=== PATIENT | male | born 1985 | race American Indian/Alaskan Native ===

== ENCOUNTER 2017-10-19 13:12 | Emergency (ER) | payer SELFPAY ==
[2017-10-19 13:44] VITALS: BP 124/77
== END 2017-10-19 16:34 ==
LOC: ED 13:12
DX: M79.641 Pain in right hand (principal); Z53.21 Procedure and treatment not carried out due to patient leaving prior to being seen by health care provider

== ENCOUNTER 2017-10-20 09:36 | Emergency (ER) | payer OTHER ==
[2017-10-20 10:21] VITALS: BP 134/75
--- NOTE | 2017-10-20 11:32 | Emergency Department Report ---
"ED Extremity Problem HPI - General Chief complaint: Extremity Injury, Upper Stated complaint: LUMP ON RIGHT WRIST Time Seen by Provider: 10/20/17 11:27 Source: patient Mode of arrival: Ambulatory Limitations: No Limitations - History of Present Illness Initial comments: 32-year-old male past medical history ganglion cyst right wrist presents with complaint of acute on chronic pain on dorsal aspect of the right wrist. Patient states that he has had this since he was 7 years old. Patient denies any direct trauma but does state that while at work he was lifting a box and may have strained his right wrist. Denies any direct trauma otherwise. Denies any paresthesias. States that flexion of his right middle finger is somewhat painful secondary to inflamed cyst. MD Complaint: extremity pain, extremity swelling Onset/Timin -: year(s) Location: right, upper extremity (dosal right wrist) History of Same: Yes Severity scale (0 -10): 6 Quality: aching Consistency: intermittent Worsens with: palpation Associated Symptoms: denies other symptoms - Related Data Previous Rx's Medication Instructions Recorded Last Taken Type Hydrocodone Bit/Acetaminophen 1 each PO Q4-6H PRN #10 tablet 04/13/13 Unknown Rx [Lortab 5-500 Tablet] Mupirocin [Bactroban 2% Oint] 1 applic TP TID #22 gram 04/13/13 Unknown Rx Sulfamethoxazole/Trimethoprim 1 each PO BID #20 tablet 04/13/13 Unknown Rx [Bactrim DS] HYDROcodone/APAP 5-325 [[place] 1 each PO Q6HR PRN #14 tablet 03/19/15 Unknown Rx 5/325] Ibuprofen [Motrin] 600 mg PO Q8H PRN #60 tablet 03/19/15 Unknown Rx Sulfamethoxazole/Trimethoprim 1 each PO BID #20 tablet 03/19/15 Unknown Rx [Bactrim DS TAB] Naproxen [Naprosyn TAB] 375 mg PO BID PRN #20 tablet 10/20/17 Unknown Rx Allergies Allergy/AdvReac Type Severity Reaction Status Date / Time No Known Allergies Allergy Unverified 03/28/13 08:40 ED Review of Systems ROS: Stated complaint: LUMP ON RIGHT WRIST Other details as noted in HPI Constitutional: denies: chills, fever Eyes: denies: eye pain, eye discharge, vision change ENT: denies: ear pain, throat pain Respiratory: denies: cough, shortness of breath, wheezing Cardiovascular: denies: chest pain, palpitations Endocrine: no symptoms reported Gastrointestinal: denies: abdominal pain, nausea, diarrhea Genitourinary: denies: urgency, dysuria Musculoskeletal: as per HPI. denies: back pain, joint swelling, arthralgia Skin: denies: rash, lesions Neurological: denies: headache, weakness, paresthesias Psychiatric: denies: anxiety, depression Hematological/Lymphatic: denies: easy bleeding, easy bruising ED Past Medical Hx - Past Medical History Previous Medical History?: Yes Additional medical history: right hand pain/lump - Surgical History Past Surgical History?: Yes Additional Surgical History: tonsillectomy, Left knee surgery - Social History Smoking Status: Never Smoker Substance Use Type: Alcohol - Medications Home Medications: Home Medications Medication Instructions Recorded Confirmed Last Taken Type Hydrocodone Bit/Acetaminophen 1 each PO Q4-6H PRN #10 tablet 04/13/13 Unknown Rx [Lortab 5-500 Tablet] Mupirocin [Bactroban 2% Oint] 1 applic TP TID #22 gram 04/13/13 Unknown Rx Sulfamethoxazole/Trimethoprim 1 each PO BID #20 tablet 04/13/13 Unknown Rx [Bactrim DS] HYDROcodone/APAP 5-325 [[place] 1 each PO Q6HR PRN #14 tablet 03/19/15 Unknown Rx 5/325] Ibuprofen [Motrin] 600 mg PO Q8H PRN #60 tablet 03/19/15 Unknown Rx Sulfamethoxazole/Trimethoprim 1 each PO BID #20 tablet 03/19/15 Unknown Rx [Bactrim DS TAB] Naproxen [Naprosyn TAB] 375 mg PO BID PRN #20 tablet 10/20/17 Unknown Rx ED Physical Exam - General Limitations: No Limitations General appearance: alert, in no apparent distress - Head Head exam: Present: atraumatic, normocephalic - Eye Eye exam: Present: normal appearance, PERRL, EOMI - ENT ENT exam: Present: mucous membranes moist - Neck Neck exam: Present: normal inspection - Respiratory Respiratory exam: Present: normal lung sounds bilaterally. Absent: respiratory distress - Cardiovascular Cardiovascular Exam: Present: regular rate, normal rhythm. Absent: systolic murmur, diastolic murmur, rubs, gallop - GI/Abdominal GI/Abdominal exam: Present: soft, normal bowel sounds - Rectal Rectal exam: Present: deferred - Extremities Exam Extremities exam: Present: normal inspection - Expanded Upper Extremity Exam Right Forearm Wrist exam: Present: normal inspection, tenderness (palpable ganglion cyst approximately 2-3 cm in diameter dorsal aspect of right hand/wrist. No surrounding erythema or fluctuance or visible cellulitis. Texture is rubbery to palpation. Painful to palpation), swelling Hand Wrist exam: Present: swelling, other (ganglion cyst) Hand L/R Back: 1 - Ganglion cyst. Neuro motor exam: Present: wrist extension intact, thumb opposition intact, thumb IP flexion intact, thumb adduction intact, fingers 2-5 abduction intact Neurosensory exam: Present: radial nerve intact, ulnar nerve intact, median nerve intact Vascular: Present: normal capillary refill, radial pulse, brachial pulse, ulnar pulse - Back Exam Back exam: Present: normal inspection - Neurological Exam Neurological exam: Present: alert, oriented X3, CN II-XII intact, normal gait - Psychiatric Psychiatric exam: Present: normal affect, normal mood - Skin Skin exam: Present: warm, dry, intact, normal color. Absent: rash ED Course Vital Signs 10/20/17 10/20/17 10:19 11:47 Temperature 98.2 F Pulse Rate 60 Respiratory 16 18 Rate Blood Pressure 134/75 O2 Sat by Pulse 99 Oximetry ED Medical Decision Making - Medical Decision Making A/P: Ganglion cyst dorsal aspect right hand/wrist 1-right wrist splint 2-naproxen when necessary 3-advised patient to follow up with orthopedics and provided him information for orthopedics follow-up 4-no clinical signs of infection. Range of motion right wrist+hand+fingers intact Critical care attestation.: If time is entered above; I have spent that time in minutes in the direct care of this critically ill patient, excluding procedure time. ED Disposition Clinical Impression: Ganglion cyst of tendon sheath of right hand Disposition: DC-01 TO HOME OR SELFCARE Is pt being admited?: No Does the pt Need Aspirin: No Condition: Stable Instructions: Naproxen (By mouth) Additional Instructions: https://orthoinfo.aaos.org/en/diseases--conditions/bkfwyoao-dokc-mg-the-wrist- and-hand/ http://www.[facility]ah[facility].org/#locations [facility], [place], [place] Phone (appointments): [phone] | Phone (general inquiries): Address: [address] [place] [address], [address] [address] [facility], [place], [place] Phone (appointments): [phone] | Phone (general inquiries): [phone] Address: [address] [place] [id number] Prescriptions: Naproxen [Naprosyn TAB] 375 mg PO BID PRN #20 tablet PRN Reason: Pain Referrals: PRIMARY CARE, [Primary Care Provider] - 3-5 Days MYRANDA MENDOZA MD [Staff Physician] - 3-5 Days [facility] [Provider Group] - 3-5 Days Forms: Work/School Release Form(ED) Time of Disposition: 12:03"
[2017-10-20] MEDS ORDERED: TORADOL IM ONE (11:42)
--- NOTE | 2017-10-20 12:16 | XRay Report ---
RIGHT HAND, 3 views: History: Painful mass on the back of right hand. The bony architecture is intact. Bony alignment is normal. No soft tissue abnormalities are seen. The joint spaces appear preserved. IMPRESSION: Normal right hand. No soft tissue mass is visualized on x-ray.
== END 2017-10-20 12:18 | disposition home or self-care (01) ==
LOC: ED 09:36
DX: M67.441 Ganglion, right hand (principal)
CPT/HCPCS: 29125; 73130; 96372; 99283; J1885

== ENCOUNTER 2018-02-22 12:53 | Emergency (ER) | payer SELFPAY ==
[2018-02-22 13:04] VITALS: BP 122/69
[2018-02-22 14:41] LABS: Bilirubin,Urine NEG (Negative); Blood,Urine NEG (Negative); Color,Urine Yellow (Yellow); Protein,Urine <15 mg/dL mg/dL (Negative); Urobilinogen,Urine < 2.0 mg/dL (<2.0)
--- NOTE | 2018-02-22 15:43 | Emergency Department Report ---
Blank Doc - Documentation Documentation: 32 yo male with no known past medical history presents to the hospital with complaints of generalized fatigue and generalized weakness for 2-3 months acutely worsening this morning. Patient states he feels diffusely drained and tired. Urinary frequency reported. Decreased appetite. No nausea, vomiting, diarrhea, or pain reported. Initial Accu-Chek 93 UA negative Labs ordered Mid-level to follow
[2018-02-22 16:01] LABS: Basophils # (Auto) 0.1 K/mm3 (0.0-0.1); Basophils % (Auto) 1.1 % (0.0-1.8); Eosinophils # (Auto) 0.1 K/mm3 (0.0-0.4); Eosinophils % (Auto) 2.2 % (0.0-4.3); Hematocrit 47.2 % (35.5-45.6); Hemoglobin 15.8 gm/dl (11.8-15.2); Lymphocytes # (Auto) 1.5 K/mm3 (1.2-5.4); Lymphocytes % (Auto) 26.9 % (13.4-35.0); Mean Corpuscular HGB Conc 34 % (32-34); Mean Corpuscular Hemoglobin 32 pg (28-32); Mean Corpuscular Volume 95 fl (84-94); Monocytes # (Auto) 0.7 K/mm3 (0.0-0.8); Monocytes % (Auto) 12.8 % (0.0-7.3); Platelet Count 186 K/mm3 (140-440); Red Blood Count 4.96 M/mm3 (3.65-5.03)
[2018-02-22 16:29] LABS: BUN/Creatinine Ratio 13; Blood Urea Nitrogen 15 mg/dL (9-20); Calcium 9.2 mg/dL (8.4-10.2); Hemolysis Index 8
[2018-02-22 16:41] LABS: Free T4 (Free Thyroxine) 1.2 ng/dL (0.76-1.46)
--- NOTE | 2018-02-22 17:09 | Emergency Department Report ---
- General Chief complaint: Weakness Stated complaint: FEELING WEAK Time Seen by Provider: 02/22/18 15:35 Source: patient Mode of arrival: Ambulatory Limitations: No Limitations - History of Present Illness Initial comments: This is a 32 y.o. male that presents to the emergency room with complaint of weakness, dizziness, and fatigue for 2-3 days. Patient states he cut grass on Tuesday and didn't seek care for since. He thought it was just a common cold currently taken Krystyna-Dalton and Goody's for symptom relief with no improvement. Patient states he is also feeling nauseous without vomiting. He also complains of congestion and increased rhinorrhea. Patient denies past medical history. He denies diarrhea, vomiting, abdominal pain, frequency, urgency, dysuria, fever, shortness of breath, and chest pain. MD Complaint: lack of energy Onset/Timin -: days(s) Severity: mild Severity scale (0 -10): 3 Consistency: intermittent Improves with: none Worsens with: evening, exertion Associated Symptoms: nausea/vomiting. denies: chest pain, confusion, dark stools, diaphoresis, dysuria, easy bruising, fever/chills, headaches, loss of appetite, rash, shortness of breath, syncope - Related Data Previous Rx's Medication Instructions Recorded Last Taken Type Hydrocodone Bit/Acetaminophen 1 each PO Q4-6H PRN #10 tablet 04/13/13 Unknown Rx [Lortab 5-500 Tablet] Mupirocin [Bactroban 2% Oint] 1 applic TP TID #22 gram 04/13/13 Unknown Rx Sulfamethoxazole/Trimethoprim 1 each PO BID #20 tablet 04/13/13 Unknown Rx [Bactrim DS] HYDROcodone/APAP 5-325 [[place] 1 each PO Q6HR PRN #14 tablet 03/19/15 Unknown Rx 5/325] Ibuprofen [Motrin] 600 mg PO Q8H PRN #60 tablet 03/19/15 Unknown Rx Sulfamethoxazole/Trimethoprim 1 each PO BID #20 tablet 03/19/15 Unknown Rx [Bactrim DS TAB] Naproxen [Naprosyn TAB] 375 mg PO BID PRN #20 tablet 10/20/17 Unknown Rx Cetirizine HCl [Zyrtec] 10 mg PO DAILY #30 tablet 02/22/18 Unknown Rx Fluticasone [Flonase] 1 spray NS QDAY #1 bottle 02/22/18 Unknown Rx Guaifenesin/Dm/Pseudoephedrine 1 each PO BID #10 tablet 02/22/18 Unknown Rx [Capmist Dm Tablet] Allergies Allergy/AdvReac Type Severity Reaction Status Date / Time No Known Allergies Allergy Unverified 03/28/13 08:40 ED Review of Systems ROS: Stated complaint: FEELING WEAK Other details as noted in HPI Constitutional: other (fatigue). denies: chills, fever, malaise ENT: congestion. denies: ear pain, throat pain Respiratory: denies: cough, shortness of breath, wheezing Cardiovascular: denies: chest pain, palpitations Gastrointestinal: nausea. denies: abdominal pain, diarrhea Genitourinary: frequency. denies: urgency, dysuria, hematuria, discharge, testicular pain, testicular mass Neurological: vertigo. denies: headache, paresthesias Psychiatric: denies: anxiety, depression ED Past Medical Hx - Past Medical History Previous Medical History?: No Additional medical history: right hand pain/lump - Surgical History Past Surgical History?: Yes Additional Surgical History: tonsillectomy, Left knee surgery - Social History Smoking Status: Never Smoker Substance Use Type: None - Medications Home Medications: Home Medications Medication Instructions Recorded Confirmed Last Taken Type Hydrocodone Bit/Acetaminophen 1 each PO Q4-6H PRN #10 tablet 04/13/13 Unknown Rx [Lortab 5-500 Tablet] Mupirocin [Bactroban 2% Oint] 1 applic TP TID #22 gram 04/13/13 Unknown Rx Sulfamethoxazole/Trimethoprim 1 each PO BID #20 tablet 04/13/13 Unknown Rx [Bactrim DS] HYDROcodone/APAP 5-325 [[place] 1 each PO Q6HR PRN #14 tablet 03/19/15 Unknown Rx 5/325] Ibuprofen [Motrin] 600 mg PO Q8H PRN #60 tablet 03/19/15 Unknown Rx Sulfamethoxazole/Trimethoprim 1 each PO BID #20 tablet 03/19/15 Unknown Rx [Bactrim DS TAB] Naproxen [Naprosyn TAB] 375 mg PO BID PRN #20 tablet 10/20/17 Unknown Rx Cetirizine HCl [Zyrtec] 10 mg PO DAILY #30 tablet 02/22/18 Unknown Rx Fluticasone [Flonase] 1 spray NS QDAY #1 bottle 02/22/18 Unknown Rx Guaifenesin/Dm/Pseudoephedrine 1 each PO BID #10 tablet 02/22/18 Unknown Rx [Capmist Dm Tablet] ED Physical Exam - General Limitations: No Limitations General appearance: alert, in no apparent distress - ENT ENT exam: Present: mucous membranes moist, normal external ear exam (turbinates mildly congested with clear discharge) - Neck Neck exam: Present: normal inspection - Respiratory Respiratory exam: Present: normal lung sounds bilaterally. Absent: respiratory distress - Cardiovascular Cardiovascular Exam: Present: regular rate, normal rhythm. Absent: systolic murmur, diastolic murmur, rubs, gallop - GI/Abdominal GI/Abdominal exam: Present: soft, normal bowel sounds. Absent: organomegaly, mass - Back Exam Back exam: Absent: CVA tenderness (R), CVA tenderness (L) - Neurological Exam Neurological exam: Present: alert, oriented X3 - Psychiatric Psychiatric exam: Present: normal affect, normal mood - Skin Skin exam: Present: warm, dry, intact, normal color. Absent: rash ED Course Vital Signs 02/22/18 13:00 Temperature 98.2 F Pulse Rate 60 Respiratory 18 Rate Blood Pressure 122/69 O2 Sat by Pulse 99 Oximetry ED Medical Decision Making - Lab Data Result diagrams: 02/22/18 15:52 02/22/18 15:52 - Medical Decision Making Patient was examined by me and Dr. Heller in fast track. Vitals are normal and patient is in no acute distress. Obtained labs and all are remarkable. Patient informed of results. Physical funds susceptible of upper respiratory infection. Start Flonase, ceterizine, and mucinex DM. Plan discussed with patient to discharge home and treat outpatient. He agrees with ER plan. Patient discharged home in stable condition. Follow up with PCP in 2-3 days for further evaluation. Return to work tomorrow. Critical care attestation.: If time is entered above; I have spent that time in minutes in the direct care of this critically ill patient, excluding procedure time. ED Disposition Clinical Impression: Other malaise Upper respiratory infection Qualifiers: URI type: acute nasopharyngitis (common cold) Qualified Code(s): J00 - Acute nasopharyngitis [common cold] Disposition: TO HOME OR SELFCARE Is pt being admited?: No Does the pt Need Aspirin: No Condition: Stable Instructions: Upper Respiratory Infection (ED), Cold Symptoms (ED) Additional Instructions: Increase fluid intake and rest. Wash hands frequently. Continue taking tylenol or ibuprofen to control fever. F/U with Primary Care Provider. Return to ER if fever, SOB, or difficulty breathing after 48 hours of supportive care. Prescriptions: Cetirizine HCl [Zyrtec] 10 mg PO DAILY #30 tablet Fluticasone [Flonase] 1 spray NS QDAY #1 bottle Guaifenesin/Dm/Pseudoephedrine [Capmist Dm Tablet] 1 each PO BID #10 tablet Referrals: [facility] [Outside] - 3-5 Days [facility] [Outside] - 3-5 Days [facility] [Outside] - 3-5 Days Forms: Work/School Release Form(ED) Time of Disposition: 17:22 Print Language: ROMANSH
== END 2018-02-22 17:33 | disposition home or self-care (01) ==
LOC: ED 12:53
DX: R53.81 Other malaise (principal); J00 Acute nasopharyngitis [common cold]; Z90.89 Acquired absence of other organs
CPT/HCPCS: 36415; 80048; 81001; 82962; 83735; 84439; 84443; 85025; 99283

== ENCOUNTER 2018-03-13 13:55 | Emergency (ER) | payer SELFPAY ==
[2018-03-13 14:42] VITALS: BP 117/86
[2018-03-13] MEDS ORDERED: MOTRIN PO ONE (14:44)
[2018-03-13] MEDS ORDERED: MOTRIN ONE (14:47)
== END 2018-03-13 18:00 | disposition left against medical advice (07) ==
LOC: ED 13:55
DX: Z04.1 Encounter for examination and observation following transport accident (principal)

== ENCOUNTER 2018-03-14 06:28 | Emergency (ER) | payer OTHER ==
[2018-03-14] MEDS ORDERED: MOTRIN PO ONE (07:25)
[2018-03-14] MEDS ORDERED: MOTRIN ONE (07:27)
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
[2018-03-14 12:57] VITALS: BP 115/70
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
== END 2018-03-14 12:54 | disposition home or self-care (01) ==
LOC: ED 06:28
DX: S39.012A Strain of muscle, fascia and tendon of lower back, initial encounter (principal); S16.1XXA Strain of muscle, fascia and tendon at neck level, initial encounter; M79.1 Myalgia; Z90.89 Acquired absence of other organs; V49.49XA Driver injured in collision with other motor vehicles in traffic accident, initial encounter; Y93.89 Activity, other specified; Y92.89 Other specified places as the place of occurrence of the external cause; Y99.8 Other external cause status
CPT/HCPCS: 72040; 72070; 72100

== ENCOUNTER 2018-07-31 13:10 | Emergency (ER) | payer OTHER ==
[2018-07-31 13:18] VITALS: BP 112/61
[2018-07-31] MEDS ORDERED: IBUPROFEN PO ONE (14:15)
--- NOTE | 2018-07-31 14:46 | XRay Report ---
RIGHT ANKLE RADIOGRAPHS INDICATION: Right ankle pain. COMPARISON: None similar. FINDINGS: AP, lateral and oblique right ankle radiographs demonstrate intact mortise, malleoli and talar dome contour. Mild tibial plafond degenerative spurring noted anteriorly and posteriorly on the lateral view. Couple of small soft tissue calcifications anteriorly measuring up to 5 mm also noted above the talar neck on the lateral view. CONCLUSION: No acute right ankle radiographic abnormality with mild degenerative changes possible, not excluded old post traumatic in a patient of this age. Please correlate. Thank you for the opportunity to participate in this patient's care.
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
== END 2018-07-31 15:30 | disposition home or self-care (01) ==
LOC: ED 13:10
DX: S93.401A Sprain of unspecified ligament of right ankle, initial encounter (principal); W18.30XA Fall on same level, unspecified, initial encounter; Y93.89 Activity, other specified; Y92.89 Other specified places as the place of occurrence of the external cause; Y99.8 Other external cause status

== ENCOUNTER 2018-09-28 13:50 | Emergency (ER) | payer SELFPAY ==
[2018-09-28 14:14] VITALS: BP 105/65
--- NOTE | 2018-09-28 15:43 | XRay Report ---
RIGHT ANKLE, 2 views: History: Injury. Compared to 07/31/18. Bone mineralization is normal. No acute osseous abnormality or joint pathology is identified. The soft tissues are unremarkable. IMPRESSION: Unremarkable right foot films.
--- NOTE | 2018-09-28 16:22 | Emergency Department Report ---
ED Extremity Problem HPI - General Chief complaint: Extremity Injury, Lower Stated complaint: RT ANKLE INJURY/PAIN Time Seen by Provider: 09/28/18 15:58 Source: patient Mode of arrival: Ambulatory Limitations: No Limitations - History of Present Illness Initial comments: Patient is a 33-year-old black male who states that for the past month he's had pain in his right foot. Patient states it is worse on the medial foot and his arch. This is worse in the mornings when he tries to take first step. He cannot remember any direct injury or trauma. No swelling fevers chills nausea vomiting. Patient states pain is 10 out of 10 in severity at its worst. Severity scale (0 -10): 10 - Related Data Previous Rx's Medication Instructions Recorded Last Taken Type Hydrocodone Bit/Acetaminophen 1 each PO Q4-6H PRN #10 tablet 04/13/13 Unknown Rx [Lortab 5-500 Tablet] Mupirocin [Bactroban 2% Oint] 1 applic TP TID #22 gram 04/13/13 Unknown Rx Sulfamethoxazole/Trimethoprim 1 each PO BID #20 tablet 04/13/13 Unknown Rx [Bactrim DS] HYDROcodone/APAP 5-325 [[place] 1 each PO Q6HR PRN #14 tablet 03/19/15 Unknown Rx 5/325] Ibuprofen [Motrin] 600 mg PO Q8H PRN #60 tablet 03/19/15 Unknown Rx Sulfamethoxazole/Trimethoprim 1 each PO BID #20 tablet 03/19/15 Unknown Rx [Bactrim DS TAB] Naproxen [Naprosyn TAB] 375 mg PO BID PRN #20 tablet 10/20/17 Unknown Rx Cetirizine HCl [Zyrtec] 10 mg PO DAILY #30 tablet 02/22/18 Unknown Rx Fluticasone [Flonase] 1 spray NS QDAY #1 bottle 02/22/18 Unknown Rx Guaifenesin/Dm/Pseudoephedrine 1 each PO BID #10 tablet 02/22/18 Unknown Rx [Capmist Dm Tablet] Cyclobenzaprine [Flexeril 10mg] 10 mg PO Q12H PRN #14 tablet 03/14/18 Unknown Rx Ibuprofen [Motrin] 600 mg PO Q8H PRN #12 tablet 03/14/18 Unknown Rx Ibuprofen [Motrin] 600 mg PO Q8H PRN #20 tablet 07/31/18 Unknown Rx Ibuprofen [Ibu] 800 mg PO Q8H PRN #20 tablet 09/28/18 Unknown Rx traMADol [Ultram] 50 mg PO Q6HR PRN #12 tablet 09/28/18 Unknown Rx Allergies Allergy/AdvReac Type Severity Reaction Status Date / Time No Known Allergies Allergy Unverified 03/28/13 08:40 ED Review of Systems ROS: Stated complaint: RT ANKLE INJURY/PAIN Other details as noted in HPI Comment: All other systems reviewed and negative ED Past Medical Hx - Past Medical History Previous Medical History?: No Additional medical history: right hand pain/lump - Surgical History Past Surgical History?: Yes Additional Surgical History: tonsillectomy, Left knee surgery - Social History Smoking Status: Never Smoker Substance Use Type: Alcohol - Medications Home Medications: Home Medications Medication Instructions Recorded Confirmed Last Taken Type Hydrocodone Bit/Acetaminophen 1 each PO Q4-6H PRN #10 tablet 04/13/13 Unknown Rx [Lortab 5-500 Tablet] Mupirocin [Bactroban 2% Oint] 1 applic TP TID #22 gram 04/13/13 Unknown Rx Sulfamethoxazole/Trimethoprim 1 each PO BID #20 tablet 04/13/13 Unknown Rx [Bactrim DS] HYDROcodone/APAP 5-325 [[place] 1 each PO Q6HR PRN #14 tablet 03/19/15 Unknown Rx 5/325] Ibuprofen [Motrin] 600 mg PO Q8H PRN #60 tablet 03/19/15 Unknown Rx Sulfamethoxazole/Trimethoprim 1 each PO BID #20 tablet 03/19/15 Unknown Rx [Bactrim DS TAB] Naproxen [Naprosyn TAB] 375 mg PO BID PRN #20 tablet 10/20/17 Unknown Rx Cetirizine HCl [Zyrtec] 10 mg PO DAILY #30 tablet 02/22/18 Unknown Rx Fluticasone [Flonase] 1 spray NS QDAY #1 bottle 02/22/18 Unknown Rx Guaifenesin/Dm/Pseudoephedrine 1 each PO BID #10 tablet 02/22/18 Unknown Rx [Capmist Dm Tablet] Cyclobenzaprine [Flexeril 10mg] 10 mg PO Q12H PRN #14 tablet 03/14/18 Unknown Rx Ibuprofen [Motrin] 600 mg PO Q8H PRN #12 tablet 03/14/18 Unknown Rx Ibuprofen [Motrin] 600 mg PO Q8H PRN #20 tablet 07/31/18 Unknown Rx Ibuprofen [Ibu] 800 mg PO Q8H PRN #20 tablet 09/28/18 Unknown Rx traMADol [Ultram] 50 mg PO Q6HR PRN #12 tablet 09/28/18 Unknown Rx ED Physical Exam - General Limitations: No Limitations General appearance: alert, in no apparent distress - Head Head exam: Present: atraumatic, normocephalic - Eye Eye exam: Present: normal appearance - ENT ENT exam: Present: mucous membranes moist - Neck Neck exam: Present: normal inspection - Respiratory Respiratory exam: Present: normal lung sounds bilaterally. Absent: respiratory distress - Cardiovascular Cardiovascular Exam: Present: regular rate, normal rhythm. Absent: systolic murmur, diastolic murmur, rubs, gallop - GI/Abdominal GI/Abdominal exam: Present: soft, normal bowel sounds - Rectal Rectal exam: Present: deferred - Extremities Exam Extremities exam: Present: normal inspection - Expanded Lower Extremity Exam Right Foot/Toe exam: Present: full ROM, tenderness (at the arch), calcaneal tenderness. Absent: swelling, abrasion, laceration, ecchymosis, crepidus, dislocation, erythema, amputation, puncture wound, foreign body - Back Exam Back exam: Present: normal inspection - Neurological Exam Neurological exam: Present: alert, oriented X3 - Psychiatric Psychiatric exam: Present: normal affect, normal mood - Skin Skin exam: Present: warm, dry, intact, normal color. Absent: rash ED Course Vital Signs 09/28/18 14:11 Temperature 97.8 F Pulse Rate 79 Blood Pressure 105/65 ED Medical Decision Making - Medical Decision Making given information regarding plantar fasciitis and the patient be discharged home Critical care attestation.: If time is entered above; I have spent that time in minutes in the direct care of this critically ill patient, excluding procedure time. ED Disposition Clinical Impression: Plantar fasciitis of right foot Disposition: DC-01 TO HOME OR SELFCARE Is pt being admited?: No Does the pt Need Aspirin: No Condition: Stable Instructions: Plantar Fasciitis (ED) Additional Instructions: Please also try by a shoe insert for plantar fasciitis as well as a splint by Dr. Bruno for plantar fasciitis that she can wear at night Referrals: ROCHELLE GONZALES DPM [Staff Physician] - 3-5 Days Time of Disposition: 16:22
== END 2018-09-28 16:41 | disposition home or self-care (01) ==
LOC: ED 13:50
DX: M72.2 Plantar fascial fibromatosis (principal); Z90.89 Acquired absence of other organs